=== PATIENT | female | born 1980 | race Caucasian/White ===

== ENCOUNTER 2021-09-02 09:15 | Emergency (ER) | payer BC, OTHER ==
[2021-09-02 09:53] VITALS: BP 125/82; PULSE 101; TEMP 98.3; BMI 27.6
[2021-09-02 12:16] LABS: BASO % 0.4 % (0-2.0); EOS % 0.3 % (0-4.5); HEMATOCRIT 41.5 % (32.4-45.2); LYMPH % 20.1 % (8-40); MCHC 33.7 g/dl (32.0-36.0); MEAN CELL VOLUME 91.9 fl (80-96); MEAN PLT VOLUME 8.7 fl (7.5-11.1); MONO % 4.7 % (3.8-10.2); NEUT % 74.5 % (42.8-82.8); PLATELET COUNT 279 10^3/uL (134-434); RBC 4.52 M/mm3 (3.60-5.2); RDW 13.2 % (11.6-15.6)
[2021-09-02 12:36] LABS: ALBUMIN 3.9 g/dl (3.4-5.0); CALCIUM 9.2 mg/dL (8.5-10.1)
[2021-09-02 12:37] LABS: BLOOD UREA NITROGEN 12.2 mg/dL (7-18)
[2021-09-02 12:39] LABS: CREATININE 0.7 mg/dL (0.55-1.3)
[2021-09-02 12:41] LABS: BILIRUBIN,TOTAL 0.4 mg/dL (0.2-1); TOT PROT 8.6 g/dl (6.4-8.2)
== END 2021-09-02 12:51 | disposition home or self-care (01) ==
LOC: JER 09:15
DX: R68.83 Chills (without fever) (principal)
CPT/HCPCS: 36415; 80053; 85025; 99283-25